=== PATIENT | female | born 1970 | race African-American/Black ===

== ENCOUNTER 2019-05-20 19:15 | Emergency (ER) | payer BC ==
[~2019-05-20] VITALS: Ht 154.9 cm; Wt 83.9 kg
[2019-05-20] MEDS ORDERED: ONDANSETRON ODT 4 MG TAB.RAPDIS SL ONE (19:45)
[2019-05-20] MEDS ORDERED: HYDROCODONE/APAP 10-325 MG TABLET PO ONE (19:45)
[2019-05-20] MEDS ORDERED: HYDROCODONE/APAP 10-325 MG TABLET ONE (19:46)
[2019-05-20] MEDS ORDERED: ONDANSETRON ODT 4 MG TAB.RAPDIS ONE (19:47)
--- NOTE | 2019-05-20 19:52 | NUR ---
Patient discharged to home in stable conditon. Written and verbal after care instructions given. Patient verbalizes understanding of instructions.
== END 2019-05-20 19:58 | disposition home or self-care (01) ==
LOC: ER 19:19
DX: G56.02 Carpal tunnel syndrome, left upper limb (principal); E78.5 Hyperlipidemia, unspecified; Z90.710 Acquired absence of both cervix and uterus; Z88.8 Allergy status to other drugs, medicaments and biological substances
CPT/HCPCS: A4663; Q0162

== ENCOUNTER 2019-06-24 07:26 | Emergency (ER) | payer BC ==
[~2019-06-24] VITALS: Ht 152.4 cm; Wt 90.7 kg
--- NOTE | 2019-06-24 07:55 | NUR ---
Pt is wearing own thumb Spica from last visit to ER.
--- NOTE | 2019-06-24 08:03 | NUR ---
Dr Lobo at the bedside for MSE.
[2019-06-24] MEDS ORDERED: HYDROCODONE/APAP 5-325MG TABLET ONE (08:20)
[2019-06-24] MEDS: HYDROCODONE/APAP 5-325MG TABLET PO ONE (08:21)
[2019-06-24 08:23] VITALS: BP 112/65
--- NOTE | 2019-06-24 08:24 | NUR ---
Patient discharged to home in stable conditon. Written and verbal after care instructions given. Patient verbalizes understanding of instructions.
== END 2019-06-24 08:24 | disposition home or self-care (01) ==
LOC: ER 07:32
DX: M25.532 Pain in left wrist (principal); E78.5 Hyperlipidemia, unspecified; Z76.0 Encounter for issue of repeat prescription; Z90.710 Acquired absence of both cervix and uterus; Z90.49 Acquired absence of other specified parts of digestive tract; Z88.8 Allergy status to other drugs, medicaments and biological substances
CPT/HCPCS: A4663

== ENCOUNTER 2019-07-29 05:33 | Emergency (ER) | payer BC ==
[~2019-07-29] VITALS: Ht 152.4 cm; Wt 86.2 kg
--- NOTE | 2019-07-29 05:48 | NUR ---
: ODETTE EVALUATED AND EXAMINED PATIENT AT B/S.
--- NOTE | 2019-07-29 05:53 | NUR ---
PATIENT CAME WITH A SOFT BRACE TO HER LEFT HAND ,ABLE TO MOVED HAND AND FINGERS VERBALIZED 8/10 PAIN TINGLING AND NUMBNESS . 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
--- NOTE | 2019-07-29 06:01 | NUR ---
Patient discharged to home in stable conditon. Written and verbal after care instructions given. Patient verbalizes understanding of instructions.ADVISED TO FOLLOW UP WITH PRIMARY MD .PATIENT WENT HOME AMBULATORY ,LEFT WITH ALL BELONGINGS .
[2019-07-29 06:05] VITALS: BP 115/60
--- NOTE | 2019-07-29 06:06 | NUR ---
PATIENT SON COMING TO PICK HER UP .
== END 2019-07-29 06:06 | disposition home or self-care (01) ==
LOC: ER 05:35
DX: G56.02 Carpal tunnel syndrome, left upper limb (principal); Z76.0 Encounter for issue of repeat prescription; Z90.49 Acquired absence of other specified parts of digestive tract; Z90.710 Acquired absence of both cervix and uterus; Z88.8 Allergy status to other drugs, medicaments and biological substances
CPT/HCPCS: A4663

== ENCOUNTER 2019-09-19 15:59 | Emergency (ER) | payer BC ==
[~2019-09-19] VITALS: Ht 152.4 cm; Wt 89.8 kg
[2019-09-19] MEDS ORDERED: GABA800T11 PO (16:15)
[2019-09-19] MEDS ORDERED: IBUP-1955 PO (16:15)
--- NOTE | 2019-09-19 16:45 | NUR ---
L.Wrist Colle splint applied. Patient tolorating well.
--- NOTE | 2019-09-19 16:58 | NUR ---
Patient discharged to home in stable conditon. Written and verbal after care instructions given. Patient verbalizes understanding of instructions.
== END 2019-09-19 17:00 | disposition home or self-care (01) ==
LOC: ER 16:02
DX: G56.02 Carpal tunnel syndrome, left upper limb (principal); Z90.49 Acquired absence of other specified parts of digestive tract; Z90.710 Acquired absence of both cervix and uterus; Z88.8 Allergy status to other drugs, medicaments and biological substances; Z79.1 Long term (current) use of non-steroidal anti-inflammatories (NSAID); Z79.899 Other long term (current) drug therapy
CPT/HCPCS: A4663